=== PATIENT | female | born 1965 | race Caucasian/White ===

== ENCOUNTER 2017-07-01 09:23 | Day surgery (SDC) | payer BC ==
[~2017-07-01 09:23] MED LIST: LIDOCAINE HCL 1% MPF SOL ONE; PROPOFOL 500 MG/50 ML EMU IV ONE
[2017-07-01 12:21] VITALS: BP 116/78; PULSE 78; RESP 16; TEMP 97.9; O2SAT 98
== END 2017-07-01 12:55 | disposition home or self-care (01) ==
LOC: SURG 09:23
PROVIDERS: ATTEND Internal Medicine Gastroenterology
DX: R10.13 Epigastric pain (principal); R13.10 Dysphagia, unspecified; K21.9 Gastro-esophageal reflux disease without esophagitis; K44.9 Diaphragmatic hernia without obstruction or gangrene; K29.70 Gastritis, unspecified, without bleeding; Q39.8 Other congenital malformations of esophagus
CPT/HCPCS: 99001; J2001; J2704